=== PATIENT | female | born 1970 | race Caucasian/White ===

== ENCOUNTER 2021-07-06 07:44 | Day surgery (SDC) | payer OTHER ==
[~2021-07-06] VITALS: Ht 157.5 cm; Wt 57.6 kg
[~2021-07-06 07:44] MED LIST: ALPR0.25 PO; ATOR1TAB19 PO; LEXA1TAB PO; METO1TAB87 PO; NS 1,000 ML IV ONE
[2021-07-06] MEDS ORDERED: LIDOCAINE 2% 100MG/5ML SDV (FOR ANES.) As Ordered ONE (09:10)
[2021-07-06] MEDS ORDERED: propofoL 200 MG/20 ML VIAL As Ordered ONE (09:11)
[2021-07-06 10:25] VITALS: BP 197/94
== END 2021-07-06 10:32 | disposition home or self-care (01) ==
LOC: M OPP 07:44
PROVIDERS: ATTEND Internal Medicine Gastroenterology
DX: Z12.11 Encounter for screening for malignant neoplasm of colon (principal); D12.0 Benign neoplasm of cecum; K64.8 Other hemorrhoids; K63.89 Other specified diseases of intestine; Z79.02 Long term (current) use of antithrombotics/antiplatelets; Z79.899 Other long term (current) drug therapy; Z88.0 Allergy status to penicillin